=== PATIENT | male | born 1935 | race American Indian/Alaskan Native ===

== ENCOUNTER 2017-01-08 11:07 | Day surgery (SDC) | payer MEDICARE, OTHER ==
--- NOTE | 2017-01-07 07:40 | Admit Criteria Form ---
Admission Criteria Documentation: AMBULATORY SURGERY EXCEPTION CRITERIA Ambulatory Surgery Exception Criteria ( Place 'X' for any and all applicable criteria): Surgery or procedure performed on ambulatory basis may require inpatient stay for[A] ANY ONE of the following(1)(2)(3)(4)(5)(6)(7)(8)(9): [X] I. A preoperative situation, condition, or finding that warrants inpatient stay as indicated by ANY ONE of the following: [] a) Inpatient care needed because of severity of a disease or condition rather than the surgery (eg, severe cardiac or respiratory disease, severe infection) (15) (16 ) (17) (18) [] b) Emergent procedure (eg, angioplasty for acute ischemia)(19) [] c) Complex surgical approach or situation as indicated by ANY ONE of the following(3): [] i) Open approach needed instead of usual endoscopic, transcatheter, or other less invasive procedure [] ii) Difficult approach because of previous operation [] iii) Airway monitoring required after open neck procedures(20)(21) [] iv) Large mass requiring unusually extensive dissection [] v) Additional complicating feature requiring inpatient care (eg, drain management)(22(23): [X] d) Major surgery in a pt with high anesthetic risk as indicated by ANY ONE of the following (2)(3)(5)(7)(8): [X] i) ASA risk class III or higher (severe systemic disease impairing function) [D] [] ii) Advanced age (eg, older than 85 years)(14)(24) [] iii) Symptomatic heart failure(25) [] iv) Symptomatic asthma or COPD(8)(21) [] v) Morbid obesity with hemodynamic or respiratory problems(20)( 21)(26)(27) [] vi) Obstructive sleep apnea(20)(21) [] vii) Former premature infants who are younger than 60 weeks [] viii) High risk for severe postoperative abnormalities (eg, severe postoperative hypocalcemia after parathyroidectomy for severe hyperparathyroidism)(27)( 28) [] ix) Unstable angina(25) [] e) Drug-related risk requiring inpatient stay as indicated by ANY ONE of the following(5)(10)(14)(32)(33) [] i) Procedure requires discontinuing drugs or other therapy (eg , antiarrhythmic medication, antiseizure medication), which necessitates inpatient observation or treatment.(18)(31) [] ii) Major surgery and high risk drug use as indicated by ANY ONE of the following: [] 1) Active abuse of cocaine or similar drug [] 2) Monoamine oxidase inhibitor use [] 3) Other drug identified as posing risk [] f) Inadequate outpatient care situation as indicated by ANY ONE of the following(5)(10)(14)(32)(33) [] i) Patient lives remote from medical facility and procedure has urgent complication potential, and temporary nearby residence cannot be arranged [] ii) Patient will have postprocedure incapacitation and inadequate assistance at home, or alternative level of care cannot be arranged. [] iii) Patient will have long general anesthesia or procedure side effect resolution time, and competent person to stay with patient on first postoperative night at home or alternative level of care cannot be arranged. []iv) Other inadequate outpatient situation that cannot be handled by other means [] II. A perioperative event, condition, or finding that warrants inpatient stay as indicated by ANY ONE of the following (1)(2)(3): [] a) Inadequate physiologic recovery: cardiovascular, respiratory, or hemodynamic status not normal or near preoperative baseline(18) [] b) Hemodynamic instability [] c) Patient not alert with near normal or baseline mental status [] d) Temperature not normal or as expected and not appropriate for outpatient treatment of condition [] e) Ambulatory or appropriate activity level status not yet achieved post procedure [E](34)(35)(36) [] f) Operative site not appropriate (eg, unexpected or excessive drainage or bleeding) [] g) Postoperative effects not resolved or adequately managed (eg, significant pain or vomiting not appropriate for outpatient or next level of care)(10)(12) [] h) Complicating features requiring inpatient care as indicated by ANY ONE of the following(37): [] i) Severe complications of procedure (eg, bowel injury, airway compromise, vascular injury,severe hemorrhage) [] ii) Extensive (eg, dissection far beyond usual scope of procedure ) or prolonged (eg, 120 minutes beyond usual) surgery needed requiring inpatient postoperative care [] iii) Conversion to an open or complex procedure that requires inpatient care (eg, open vs laparoscopic cholecystectomy, abdominal vs vaginal hysterectomy)(38) [] iv) Comorbid condition or test result identified during or post procedure that requires inpatient care (7) [] v) Malignant hyperthermia(30) [] vi) Other complicating feature requiring inpatient care(22)(23) Inpatient stay may be needed until ALL of the following are present (1)(2)(3)(4) (5)(6)(10)(14)(33)(40): []a) Physiologic recovery: cardiovascular, respiratory, and hemodynamic status normal or near preoperative baseline []b) Hemodynamic stability []c) Patient alert, with near normal or baseline mental status []d) Temperature appropriate: patient afebrile or temperature appropriate for outpt treatment of condition []e) Activity level appropriate: ambulatory or appropriate activity level post procedure []f) Operative site appropriate as indicated by ALL of the following: []i) Site dry or with expected drainage []ii) Any blood noted is as expected for procedure. []g) Postoperative effects resolved or managed as indicated by ALL of the following: []i) Pain management appropriate for outpatient (or next level of) care(10) []ii) Minimal nausea and vomiting: if present, successfully treated with oral medication(12) []iii) Headache, dizziness, or drowsiness (if present) are mild. []h) Voiding status acceptable as indicated by ANY ONE of the following: []i) Voiding spontaneously []ii) No voiding but instructions given for follow-up in 6 to 8 hours []iii) Urinary catheter in place, and instructions given for follow-up []i) Complicating features requiring inpatient care manageable at a lower level of care(37) []j) Comorbid conditions manageable at a lower level of care(37) The original [employer] content created by [employer] has been revised. The portions of the content which have been revised are identified through the use of italic text or in bold, and [employer] has neither reviewed nor approved the modified material. All other unmodified content is copyright [employer]. Please see references footnoted in the original [employer] edition 2016
[~2017-01-08 11:07] MED LIST: FLAGYL 500 MG/100 ML 500 MG/100 ML BAG IV SCH; PEPCID PO NR
[2017-01-08] MEDS ORDERED: NACL 0.9% 1000 ML 1,000 ML IV SCH (11:54)
[2017-01-08] MEDS ORDERED: NACL BACTERIOSTATIC INFILTRATI ONE (11:58)
--- NOTE | 2017-01-08 12:13 | Anesthesia Consultation ---
Anesthesia Consult and Med Hx Date of service: 01/08/17 - Airway Anesthetic Teeth Evaluation: Edentulous ROM Head & Neck: Adequate Mental/Hyoid Distance: Adequate Mallampati Class: Class II Intubation Access Assessment: Good - Pulmonary Exam CTA: Yes - Cardiac Exam Cardiac Exam: RRR - Pre-Operative Health Status ASA Pre-Surgery Classification: ASA3 Proposed Anesthetic Plan: General - Pulmonary Hx Smoking: Yes (STOPPED 1970-1PPD X 15 YRS) Hx Asthma: Yes (USES INHALERS) Hx Respiratory Symptoms: (sinus problems) Hx Sleep Apnea: Yes (DX SLEEP APNEA WITH CPAP USE) - Cardiovascular System Hx Hypertension: Yes (X 2 YRS- OFF MED X 6 MONTHS 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
--- NOTE | 2017-01-08 12:13 | Anesthesia Day of Surgery ---
Anesthesia Day of Surgery - Day of Surgery Patient Examined: Yes Patient H&P Reviewed: Yes Patient is NPO: Yes
[2017-01-08] MEDS ORDERED: ZOFRAN IV PRN (12:14)
[2017-01-08] MEDS ORDERED: PERCOCET 5/325 PO PRN (12:14)
[2017-01-08] MEDS ORDERED: DILAUDID IV PRN (12:14)
[2017-01-08 12:22] LABS: Basophils % (Auto) 0.8 % (0.0-1.8); Eosinophils % (Auto) 14.1 % (0.0-4.3); Hematocrit 37.8 % (35.5-45.6); Hemoglobin 12.4 gm/dl (11.8-15.2); Mean Corpuscular HGB Conc 33 % (32-34); Mean Corpuscular Hemoglobin 31 pg (28-32); Mean Corpuscular Volume 93 fl (84-94); Platelet Count 209 K/mm3 (140-440); Red Blood Count 4.06 M/mm3 (3.65-5.03); Red Cell Distribution Width 14.5 % (13.2-15.2); White Blood Count 5.8 K/mm3 (4.5-11.0)
[2017-01-08 12:34] LABS: Anion Gap 16 mmol/L; BUN/Creatinine Ratio 11.11; Blood Urea Nitrogen 10 mg/dL (9-20); Calcium 9.5 mg/dL (8.4-10.2); Carbon Dioxide 29 mmol/L (22-30); Chloride 98.8 mmol/L (98-107); Glucose 101 mg/dL (75-100); Potassium 4.4 mmol/L (3.6-5.0); Sodium 139 mmol/L (137-145)
[2017-01-08] MEDS ORDERED: SUBLIMAZE ONE (12:44)
[2017-01-08] MEDS ORDERED: DIPRIVAN 10 MG/ML IV ONE (12:44)
[2017-01-08] MEDS ORDERED: XYLOCAINE MPF 2% ONE (12:45)
[2017-01-08] MEDS ORDERED: ZOFRAN ONE (12:45)
[2017-01-08] MEDS ORDERED: DECADRON ONE (12:45)
[2017-01-08] MEDS ORDERED: WATER FOR IRRIG STERILE IR ONE (13:15)
--- NOTE | 2017-01-08 13:55 | Short Stay Summary ---
Short Stay Documentation Date of service: 01/08/17 - History H&P: obtained from office - Allergies and Medications Current Medications: Allergies chocolate flavor Allergy (Verified 10/24/16 12:03) COUGH Home Medications Medication Instructions Recorded Confirmed Last Taken Type Cholecalciferol Vit D3 [Vitamin D3] 5,000 units PO DAILY 06/16/14 01/08/1701/07 History Fluticasone/Salmeterol [Advair 1 inhalation INHALATION BID 06/16/14 01/08/17 08:00 History Diskus 250-50 mcg] Saw/Vit E/Sod Cecilia/Lyc/Beta/Pyg 1 tab PO BID 06/16/14 01/08/17 01/07/17 History [Prostate Health Caplet] Tamsulosin [Flomax] 0.4 mg PO DAILY 06/16/14 01/08/17 01/07/17 History Fish Oil 1 cap PO DAILY 05/09/15 01/08/17 01/07/17 History Acetaminophen [Tylenol Arthritis] 1 tab PO PRN PRN 10/24/16 01/08/17 12/18/16 History Multivit-Min/FA/Lycopen/Lutein 1 tab PO DAILY 10/24/16 01/08/17 01/07/17 History [Centrum Silver Tablet] Fluticasone [Flonase] 1 spray INHALATION QHS 12/18/16 01/08/17 01/06/17 History Pantoprazole [Protonix] 40 mg PO QDAY 12/18/16 01/08/17 01/07/17 History Active Medications Famotidine (Pepcid) 20 mg PO PREOP NR Stop: 01/08/17 23:01 Last Admin: 01/08/17 12:34 Dose: 20 mg Hydromorphone HCl (Dilaudid) 0.5 mg IV Q10MIN PRN PRN Reason: Pain , Severe (7-10) Stop: 01/08/17 23:59 Metronidazole (Flagyl 500 Mg/100 Ml) 500 mg in 100 mls @ 100 mls/hr IV PREOP GUY Sodium Chloride (Nacl 0.9% 1000 Ml) 1,000 mls @ 75 mls/hr IV DIRECT GUY Last Admin: 01/08/17 12:13 Dose: 75 mls/hr - Brief post op/procedure progress note Date of procedure: 01/08/17 Pre-op diagnosis: elevated psa, bph Post-op diagnosis: same Procedure: cysto, rpg, pus bx (77cc) Anesthesia: GETA Surgeon: KATHY DRISCOLL Estimated blood loss: minimal Pathology: list (prostate cores) Specimen disposition: to lab Condition: stable - Hospital course Hospital course: ceftin & norco--pt has scripts - Disposition Condition at discharge: Stable Disposition: DISCHARGED TO HOME OR SELFCARE Short Stay Discharge Plan Follow up with: STORMY RAJAN MD [Primary Care Provider] - 7 Days
--- NOTE | 2017-01-08 14:02 | Post Anesthesia Evaluation ---
- Post Anesthesia Evaluation Patient Participated: Yes Airway Patent: Yes Stable Respiratory Function: Yes Nausea/Vomiting: No Temp > 96.8F: Yes Pain Manageable: Yes Adequeate Hydration: Yes Anesthesia Complications: No Block Receding Appropriately: Not Applicable Patient on Ventilator: No
[2017-01-08 14:55] VITALS: BP 125/79
--- NOTE | 2017-01-08 19:42 | Operative Report ---
PREOPERATIVE DIAGNOSES: Elevated PSA of 7, Apifiny score 88, BPH. POSTOPERATIVE DIAGNOSES: Elevated PSA of 7, Apifiny score 88, BPH. PROCEDURE: Cystoscopy, bilateral retrograde pyelograms, transrectal ultrasound and biopsy of the prostate (saturation). PROSTATE VOLUME: 77 mL. SURGEON: Mario Dominguez M.D. ANESTHESIA: General. ESTIMATED BLOOD LOSS: Minimal. FLUIDS: Crystalloid. COMPLICATIONS: No complications. INDICATIONS: This patient is a 81-year-old gentleman known to my service with an elevated PSA and biopsy in the past, 2008, which was negative for PSA of 5.5. We trended his PSA; it continues to rise. He presents now for saturation biopsy. Risks, benefits, and complications were explained. DESCRIPTION OF PROCEDURE: The patient was taken to the operative suite, placed in a supine position. After adequate general anesthesia, placed in a dorsal lithotomy position and prepped and draped in a sterile fashion. Pancystourethroscopy was performed with a 22 Palestinian Storz cystoscope. The patient does have bilobed prostatic obstruction. No tumors or stones were noted in the bladder. Bilateral retrograde pyelograms were obtained with an 8 Palestinian [place] catheter and 8 mL of contrast. No filling defects or obstruction. Does have some J hooking and mild dilatation consistent with benign prostate hypertrophy. Next, using an ultrasound probe, transrectal ultrasound was performed. Measurements revealed 77 g gland. No suspicious lesions could be appreciated on ultrasound. Saturation biopsies were taken. Total of 24 cores, 8 at the base, mid, and apex. The patient tolerated the procedure well. Rectal exam was benign. He was extubated and taken to recovery room. He will continue his Ceftin. Follow up in the office. JOB# [id number] [facility]
--- NOTE | 2017-01-09 08:00 | Ultrasound Report ---
ULTRASOUND GUIDE INTRAOPERATIVE History: Benign prostatic hyperplasia, guidance for prostate biopsy. Findings: Endorectal ultrasound guidance was provided by radiology during prostate biopsy by urology. The prostate gland measures 6.0 x 4.2 x 5.9 cm. Prostate volume measures 77 cc. Impression: Successful prostate biopsy under ultrasound guidance.
--- NOTE | 2017-01-09 09:36 | Fluoroscopy Report ---
Retrograde pyelogram. History: Elevated PSA. Findings: There is mild pelvocaliectasis bilaterally. The ureters are slightly prominent as well. There no filling defects or strictures. These findings may be related to bladder outlet obstruction. Clinical correlation is advised.
== END 2017-01-08 15:30 | disposition home or self-care (01) ==
LOC: OR 11:07
PROVIDERS: ATTEND Urology
DX: R97.20 Elevated prostate specific antigen [PSA] (principal); I10 Essential (primary) hypertension
CPT/HCPCS: 36415; 55700; 74420; 76998; 80048; 85025; A4217; J1100; J2405; J2704; J3010; J7030; Q9967; 88305; C1758

== ENCOUNTER 2019-02-11 06:37 | Day surgery (SDC) | payer MEDICARE, OTHER ==
[2019-02-11] MEDS ORDERED: ECOTRIN PO NR (07:01)
[2019-02-11 07:25] LABS: Hematocrit 41.6 % (35.5-45.6); Hemoglobin 14.1 gm/dl (11.8-15.2); Mean Corpuscular HGB Conc 34 % (32-34); Mean Corpuscular Volume 95 fl (84-94); Platelet Count 202 K/mm3 (140-440); Red Blood Count 4.39 M/mm3 (3.65-5.03); Red Cell Distribution Width 13.7 % (13.2-15.2)
[2019-02-11 07:39] LABS: INR 1.07 (0.87-1.13)
[2019-02-11 07:40] LABS: Partial Thromboplastin Time 27.8 Sec. (24.2-36.6)
[2019-02-11 07:41] LABS: BUN/Creatinine Ratio 13; Blood Urea Nitrogen 14 mg/dL (9-20); Calcium 9.3 mg/dL (8.4-10.2); Hemolysis Index 6
[2019-02-11] MEDS ORDERED: NACL 0.9% 500 ML 500 ML IV SCH (08:00)
[2019-02-11] MEDS ORDERED: VERSED ONE (09:43)
[2019-02-11] MEDS ORDERED: NITROGLYCERIN SYRINGE 3 ML ONE (09:44)
[2019-02-11] MEDS ORDERED: CALAN ONE (09:44)
[2019-02-11] MEDS ORDERED: XYLOCAINE 2% INFILTRATI ONE (09:44)
[2019-02-11] MEDS ORDERED: HEPARIN/NS 5000 UNIT/500ML(CATH LAB) 1,000 ML IR ONE (09:44)
[2019-02-11] MEDS ORDERED: SUBLIMAZE ONE (09:44)
[2019-02-11 10:31] LABS: Band Neutrophils # (Manual) 0.1 K/mm3; Basophils % (Manual) 0 % (0.0-1.8); Platelet Estimate Consistent w Auto; RBC Morphology Normal; Total Cells Counted 100
[2019-02-11] MEDS: HEPARIN 10,000 UNITS/10 ML ONE ×2 (10:33→10:46)
[2019-02-11] MEDS ORDERED: NACL 0.9% 500 ML 500 ML ONE (10:47)
--- NOTE | 2019-02-11 11:51 | Discharge Summary ---
Short Stay Discharge Plan Activity: advance as tolerated Weight Bearing Status: Full Weight Bearing Diet: low fat, low cholesterol, low salt Wound: keep clean and dry Special Instructions: no heavy lifting (3 days) Follow up with: RAAD CABRERA MD [Primary Care Provider] - 7 Days DANIELLA RIOJAS MD [Staff Physician] - 7 Days
[2019-02-11] MEDS ORDERED: NACL 0.9% 1000 ML 1,000 ML IV SCH (12:00)
--- NOTE | 2019-02-11 12:16 | Cardiac Catherization Report ---
REASON FOR PROCEDURE: The patient is an 83-year-old man with multiple coronary risk factors, underwent an outpatient thallium stress test that was abnormal, prompting a recommendation for a cardiac catheterization. PROCEDURE: 1. Left heart catheterization. 2. Selective left and right coronary angiography. 3. Left ventricular angiography. 4. Fractional flow reserve interrogation and measurement of the LAD stenosis. 5. Sedation time start 10:31, end 11:05. The patient was prepped and draped in a sterile fashion after informed consent. The right radial cath site was prepped and draped after a negative Jairo's test. The right radial artery was entered using Seldinger technique followed by placement of a 6-[place]guillan hydrophilic sheath. A selective left and right coronary angiography was performed using a #3.5 left Mya and a #4 right Mya. The right Mya was used for left ventricle angiography. FINDINGS: HEMODYNAMICS: Left ventricular end-diastolic pressure was 24, following coronary angiography. Ascending aortic pressure 136/67. There was no significant pressure gradient on pullback across the aortic valve. CORONARY ANGIOGRAPHY: There was [id number] coronary calcification, chiefly involving the proximal segments of the left coronary system. The left main coronary artery contained mild irregularities. The left anterior descending artery contained an eccentric, 50-70% stenosis of its mid segment. The circumflex artery and its obtuse marginal branches were free of significant disease. The right coronary artery was a large dominant vessel, free of significant disease. There was normal left ventricular systolic function with ejection fraction greater than 55-60%, following an extrasystolic beat. FRACTIONAL FLOW RESERVE MEASUREMENT: After review of the angiograms, ischemic evaluation of the borderline severity of mid LAD stenosis was recommended. We selected a #4 left Mya guiding catheter and advanced to the left coronary ostium. The fractional flow reserve wire was then introduced successfully into the LAD across the lesional segment. After normalization of pressures, baseline pressures were measured across the lesional segment, following which provocative measurements were taken after administration of intracoronary adenosine, in doses of 50 mcg and 80 mcg. The fractional flow reserve at baseline was 0.99, and unchanged at 0.99 following introduction of maximal hyperemia with 80 mcg of intracoronary adenosine. The catheters and the wires were removed, sheath removed, and hemostasis achieved using manual compression. The patient was returned to the postprocedure unit in stable condition. There were no complications. CONCLUSION: 1. Single vessel coronary artery disease with a 50-70% stenosis of the mid LAD. 2. Normal left ventricular systolic function, ejection fraction greater than 55%. 3. Fractional flow reserve measurement across the mid LAD of 0.99, not consistent with ischemic potential across the lesion. RECOMMENDATION: The patient is recommended for risk factor modification and medical therapy. [facility]# [id number] [place]/[facility]
[2019-02-11 17:48] VITALS: BP 149/69
== END 2019-02-11 18:15 | disposition home or self-care (01) ==
LOC: CATHLABREC 06:37
PROVIDERS: ATTEND Internal Medicine Cardiovascular Disease
DX: I25.10 Atherosclerotic heart disease of native coronary artery without angina pectoris (principal); I10 Essential (primary) hypertension; J45.909 Unspecified asthma, uncomplicated; G47.30 Sleep apnea, unspecified; K21.9 Gastro-esophageal reflux disease without esophagitis; M06.9 Rheumatoid arthritis, unspecified; Z91.030 Bee allergy status; Z79.899 Other long term (current) drug therapy; Z87.891 Personal history of nicotine dependence; Z98.890 Other specified postprocedural states; Z98.49 Cataract extraction status, unspecified eye; Z90.49 Acquired absence of other specified parts of digestive tract; Z85.46 Personal history of malignant neoplasm of prostate; Z96.652 Presence of left artificial knee joint; Z86.2 Personal history of diseases of the blood and blood-forming organs and certain disorders involving the immune mechanism; Z88.8 Allergy status to other drugs, medicaments and biological substances
CPT/HCPCS: 36415; 80048; 85007; 85025; 85347; 85610; 85730; 93005; 93010; 93458; 93571; 99156; 99157; C1769; C1887; C1894; J0153; J1644; J2250; J3010; J7040; Q9967